=== PATIENT | female | born 1990 | race Caucasian/White ===

== ENCOUNTER 2019-01-04 12:14 | Emergency (ER) | payer OTHER, SELFPAY ==
[2019-01-04 12:18] VITALS: BP 131/87; PULSE 84; RESP 18; TEMP 36.3; O2SAT 100; BMI 30.9
--- NOTE | 2019-01-04 12:29 | ED_ITS ---
HPI - <NIRMAL Pedersen - Last Filed: 01/04/19 21:52> General Chief complaint: OB/Uterine Contractions Stated complaint: 8wks preg, says bright red bleeding last night Time Seen by Provider: 01/04/19 12:28 Source: patient Mode of arrival: ambulatory Limitations: no limitations History of Present Illness HPI Narrative: 28-year-old healthy female that is a nonsmoker here for complaint of vaginal bleeding. She reports that she is approximately 8 weeks . She is 1 she states that she has had some spotting since last night. She also states she passed a few clots. She states she had some cramping last night however no cramping today. She denies any urinary symptoms. No abdominal trauma. She believes her blood type is B negative. Positive p.o. intake. She denies any other concerns or complaints at this timeframe. MD Complaint: vaginal bleeding Date of Last Menstrual Period: 11/10/18 Patient : Yes Expected Date of Delivery: 08/16/19 Review of Systems <NIRMAL Pedersen - Last Filed: 01/04/19 21:52> Constitutional Denies chills, Denies fever(s), Denies lethargy and Denies weakness Eyes Denies change in vision, Denies eye discharge, Denies irritation and Denies loss of vision ENT Ears, Nose, Mouth, and Throat: Denies change in voice, Denies neck pain and Denies sore throat Cardiovascular Denies chest pain, Denies irregular heart rhythm, Denies lightheadedness, Denies palpitations, Denies dyspnea, Denies dyspnea on exertion and Denies orthopnea Respiratory Denies cough, Denies dyspnea, Denies dyspnea on exertion and Denies wheezing Gastrointestinal Gastrointestinal: Denies abdominal pain, Denies change in bowel habits, Denies diarrhea, Denies nausea and Denies vomiting Genitourinary Comments: Vaginal spotting 8 weeks Musculoskeletal Denies neck pain Integumentary/Breasts Denies pruritus, Denies erythema, Denies rash and Denies wounds Neurologic Denies confusion, Denies loss of vision and Denies weakness Psychiatric Denies anxiety, Denies confusion, Denies depression, Denies homicidal ideation and Denies suicidal ideation Endocrine Denies palpitations Hematologic/Lymphatic Denies easy bruising Allergic/Immunologic Denies wheezing PMFSH - <NIRMAL Pedersen - Last Filed: 01/04/19 21:52> Past Medical History Medical history: Reports no medical history Surgical history: Reports no surgical history Date of Last Menstrual Period: 11/10/18 Patient : Yes Expected Date of Delivery: 08/16/19 Exam <Ariel NIRMAL Ngo - Last Filed: 01/04/19 21:52> Initial Vital Signs Initial Vital Signs: Vital Signs Temperature 97.3 F L 01/04/19 12:18 Pulse Rate 84 01/04/19 12:18 Respiratory Rate 18 01/04/19 12:18 Blood Pressure 131/87 01/04/19 12:18 Pulse Oximetry 100 01/04/19 12:18 Const General: cooperative and well developed Nutritional Appearance: well nourished Orientation: alert, awake, oriented x3 and not confused HENMT Mouth: oral mucosae normal and mucous membranes abnormal Eyes Conjunctivae: conjunctivae normal Sclera: sclerae normal Pupils: PERRL EOM: EOM intact bilaterally Resp Effort & Inspection: normal respiratory effort, able to speak in complete sentences, no respiratory distress and no use of accessory muscles Auscultation: clear to auscultation bilaterally, no rales, no rhonchi and no wheezes Cardio Rate: regular rate Rhythm: regular rhythm Heart Sounds: no click, no gallops, no murmurs and no rubs GI Inspection: non-distended Palpation: soft, no hepatosplenomegaly, No guarding, No pulsatile mass and No tender Auscultation: normal bowel sounds General: No CVA tenderness Skin General: no rashes or lesions noted, No jaundice and No petechiae Neuro General: alert, oriented x3, gait normal and no focal motor deficits Speech: speech normal <Tamia Guo DO - Last Filed: 01/08/19 07:07> Initial Vital Signs Initial Vital Signs: Vital Signs Temperature 97.3 F L 01/04/19 12:18 Pulse Rate 84 01/04/19 12:18 Respiratory Rate 18 01/04/19 12:18 Blood Pressure 131/87 01/04/19 12:18 Pulse Oximetry 100 01/04/19 12:18 Course <NIRMAL Pedersen - Last Filed: 01/04/19 21:52> Orders Ordered: Discontinued Medications Rho Immune Globulin (Hyperrho S-D) 1,500 unit IM NOW ONE Stop: 01/04/19 14:47 Last Admin: 01/04/19 15:23 Dose: 1,500 unit Vital Signs - 8 hr 01/04/19 16:09 Pulse Rate 76 Respiratory Rate 16 Blood Pressure [Right Arm] 111/75 Pulse Oximetry 100 <Tamia Guo DO - Last Filed: 01/08/19 07:07> Orders Ordered: Discontinued Medications Rho Immune Globulin (Hyperrho S-D) 1,500 unit IM NOW ONE Stop: 01/04/19 14:47 Last Admin: 01/04/19 15:23 Dose: 1,500 unit Vital Signs - 8 hr 01/04/19 16:09 Pulse Rate 76 Respiratory Rate 16 Blood Pressure [Right Arm] 111/75 Pulse Oximetry 100 MDM - OB/Uterine Contractions <NIRMAL Pedersen - Last Filed: 01/04/19 21:52> Lab Data Result diagrams: 01/04/19 14:06 01/04/19 14:06 Lab Results 01/04/19 01/04/19 01/04/19 Range/Units 13:22 14:06 14:06 WBC 8.8 (4.5-11.0) X10^3/uL RBC 4.90 (4.0-5.2) X10^6/uL Hgb 14.6 (12.0-16.0) g/dL Hct 42.2 (36-46) % MCV 86.2 (80-100) fL MCH 29.9 (26-34) PG MCHC 34.7 (30-36) % RDW 13.0 (11.6-14.8) % Plt Count 208 (150-400) X10^3/uL Neut % (Auto) 74.7 (50-75) % Lymph % (Auto) 15.7 L (25-40) % [place] % (Auto) 7.9 (3-14) % Eos % (Auto) 0.8 L (2-4) % Baso % (Auto) 0.9 (0-2) % Neut # (Auto) 6600 (5108-3846) /uL Lymph # (Auto) 1400 (2656-7414) /uL [place] # (Auto) 700 (0-900) /uL Eos # (Auto) 100 (0-450) /uL Baso # (Auto) 100 (0-100) /uL Sodium 136 L (137-145) mmol/L Potassium 3.7 (3.4-5.1) mmol/L Chloride 104 (98-107) mmol/L Carbon Dioxide 21 L (22-32) mmol/L BUN 11 (7-17) mg/dL Creatinine 0.60 (0.52-1.04) mg/dL Estimated GFR > 60.0 (>60) mL/min BUN/Creatinine Ratio 18.3 (6-22) Glucose 84 (70-100) mg/dL Calcium 9.4 (8.4-10.2) mg/dL Total Bilirubin 0.3 (0.2-1.3) mg/dL AST 20 (14-36) IU/L ALT 27 (9-52) IU/L Alkaline Phosphatase 53 (38-126) U/L Total Protein 7.7 (6.3-8.2) g/dL Albumin 4.5 (3.5-5.0) g/dL Globulin 3.2 (1.7-4.1) g/dL Albumin/Globulin Ratio 1.4 (1.0-2.8) HCG, Quant 137848 mIU/mL Urine RBC None seen (0-5/HPF) Urine WBC 0-1/hpf (0-5/HPF) Ur Squamous Epith Cells 5-10 /hpf H Urine Bacteria Occasional (0-1) (None) Urine Mucus 1+ H (Negative) Ur Culture Indicated? Cult not indicated Blood Type 01/04/19 Range/Units 14:06 WBC (4.5-11.0) X10^3/uL RBC (4.0-5.2) X10^6/uL Hgb (12.0-16.0) g/dL Hct (36-46) % MCV (80-100) fL MCH (26-34) PG MCHC (30-36) % RDW (11.6-14.8) % Plt Count (150-400) X10^3/uL Neut % (Auto) (50-75) % Lymph % (Auto) (25-40) % [place] % (Auto) (3-14) % Eos % (Auto) (2-4) % Baso % (Auto) (0-2) % Neut # (Auto) (8757-8536) /uL Lymph # (Auto) (9653-7489) /uL [place] # (Auto) (0-900) /uL Eos # (Auto) (0-450) /uL Baso # (Auto) (0-100) /uL Sodium (137-145) mmol/L Potassium (3.4-5.1) mmol/L Chloride (98-107) mmol/L Carbon Dioxide (22-32) mmol/L BUN (7-17) mg/dL Creatinine (0.52-1.04) mg/dL Estimated GFR (>60) mL/min BUN/Creatinine Ratio (6-22) Glucose (70-100) mg/dL Calcium (8.4-10.2) mg/dL Total Bilirubin (0.2-1.3) mg/dL AST (14-36) IU/L ALT (9-52) IU/L Alkaline Phosphatase (38-126) U/L Total Protein (6.3-8.2) g/dL Albumin (3.5-5.0) g/dL Globulin (1.7-4.1) g/dL Albumin/Globulin Ratio (1.0-2.8) HCG, Quant mIU/mL Urine RBC (0-5/HPF) Urine WBC (0-5/HPF) Ur Squamous Epith Cells Urine Bacteria (None) Urine Mucus (Negative) Ur Culture Indicated? Blood Type B Negative Urine Dip Bedside Urine Glucose 250 mg/dl Bedside Urine Bilirubin - Negative Bedside Urine Ketone - Negative Urine Specific [place] 1.030 Bedside Urine Occult Blood +/- Bedside Urine pH 6.0 Bedside Urine Protein +/- 15 Bedside Urine Urobilinogen - Negative Bedside Urine Nitrite - Negative Bedside Urine Leukocytes - Negative Esterase Imaging Data ultrasound: Radiologist's impression: [address] [address] Ultrasound Report Signed Patient: Osiris Joya#: [id number] : 1990Acct:[id number] Age/Sex: 28 / FDate of Service: 01/04/19 Loc: ED Accession Number: [id number] Procedure: US OB <= 14 weeks fetus Ordering Provider: Ariel Ngo PROCEDURE: US OB <= 14 WEEKS FETUS INDICATIONS: Approximately 8 weeks with vaginal bleeding OUTSIDE/PRIOR DATING DATA: Last menstrual period (LMP): 11/10/18. LMP-based estimated date of delivery (ROBERTO): 08/17/19. First dating scan (date and location): This study, 01/04/19. Estimated date of delivery (ROBERTO) from first dating scan: 08/24/19, plus or -5 days. TECHNIQUE: Real-time scanning was performed of the fetus and maternal pelvic organs, with image documentation. Endovaginal scanning was also performed to better visualize the fetus and maternal ovaries. COMPARISON: None. FINDINGS: Embryo: Chamberlain-rump length of 9 mm correlates with a current gestational age of 6 weeks 6 days, plus or -5 days. cardiac activity at 145 beats per minute is noted. Measurement variability in dating: +/- 4 weeks by LMP, +/- 7 days by mean sac diameter (use before 6 weeks gestation if crown-rump length not able to be measured), +/- 5 days by crown-rump length (up to 8 weeks 6 days gestation), +/- 7 days by crown-rump length (up to 13 weeks 6 days gestation). Maternal organs: Ovaries appear normal considering gestational status. Limited images through the kidneys demonstrate no hydronephrosis. IMPRESSION: Single living intrauterine gestation with gestational age 6 weeks 6 days and delivery date projected to be centered on 08/24/19, plus or -5 days. Followup anatomic survey at 21 weeks gestation is recommended. Dictated by: Ash Cornejo M.D. on 01/04/2019 at 14:59 Approved by: Ash Cornejo M.D. on 01/04/2019 at 15:02 MDM Narrative Medical decision making narrative: ultrasound was obtained and shows viable intrauterine 6 weeks 6 days with heart rate of 145. Source of bleeding is not identified. Chem panel was obtained was unremarkable. CBC was obtained was also unremarkable. hCG quantitative was at 164,000. ABO Rh shows b negative. RhoGAM was given in the emergency room. Will treat as threatened . Follow up with OB in the next couple of days for re- evaluation. For any worsening symptoms return to the emergency room. <Tamia Guo, - Last Filed: 01/08/19 07:07> Lab Data Lab Results 01/04/19 01/04/19 01/04/19 Range/Units 13:22 14:06 14:06 WBC 8.8 (4.5-11.0) X10^3/uL RBC 4.90 (4.0-5.2) X10^6/uL Hgb 14.6 (12.0-16.0) g/dL Hct 42.2 (36-46) % MCV 86.2 (80-100) fL MCH 29.9 (26-34) PG MCHC 34.7 (30-36) % RDW 13.0 (11.6-14.8) % Plt Count 208 (150-400) X10^3/uL Neut % (Auto) 74.7 (50-75) % Lymph % (Auto) 15.7 L (25-40) % [place] % (Auto) 7.9 (3-14) % Eos % (Auto) 0.8 L (2-4) % Baso % (Auto) 0.9 (0-2) % Neut # (Auto) 6600 (7479-6244) /uL Lymph # (Auto) 1400 (3598-4331) /uL [place] # (Auto) 700 (0-900) /uL Eos # (Auto) 100 (0-450) /uL Baso # (Auto) 100 (0-100) /uL Sodium 136 L (137-145) mmol/L Potassium 3.7 (3.4-5.1) mmol/L Chloride 104 (98-107) mmol/L Carbon Dioxide 21 L (22-32) mmol/L BUN 11 (7-17) mg/dL Creatinine 0.60 (0.52-1.04) mg/dL Estimated GFR > 60.0 (>60) mL/min BUN/Creatinine Ratio 18.3 (6-22) Glucose 84 (70-100) mg/dL Calcium 9.4 (8.4-10.2) mg/dL Total Bilirubin 0.3 (0.2-1.3) mg/dL AST 20 (14-36) IU/L ALT 27 (9-52) IU/L Alkaline Phosphatase 53 (38-126) U/L Total Protein 7.7 (6.3-8.2) g/dL Albumin 4.5 (3.5-5.0) g/dL Globulin 3.2 (1.7-4.1) g/dL Albumin/Globulin Ratio 1.4 (1.0-2.8) HCG, Quant 468929 mIU/mL Urine RBC None seen (0-5/HPF) Urine WBC 0-1/hpf (0-5/HPF) Ur Squamous Epith Cells 5-10 /hpf H Urine Bacteria Occasional (0-1) (None) Urine Mucus 1+ H (Negative) Ur Culture Indicated? Cult not indicated Blood Type 01/04/19 Range/Units 14:06 WBC (4.5-11.0) X10^3/uL RBC (4.0-5.2) X10^6/uL Hgb (12.0-16.0) g/dL Hct (36-46) % MCV (80-100) fL MCH (26-34) PG MCHC (30-36) % RDW (11.6-14.8) % Plt Count (150-400) X10^3/uL Neut % (Auto) (50-75) % Lymph % (Auto) (25-40) % [place] % (Auto) (3-14) % Eos % (Auto) (2-4) % Baso % (Auto) (0-2) % Neut # (Auto) (2553-4506) /uL Lymph # (Auto) (2386-7882) /uL [place] # (Auto) (0-900) /uL Eos # (Auto) (0-450) /uL Baso # (Auto) (0-100) /uL Sodium (137-145) mmol/L Potassium (3.4-5.1) mmol/L Chloride (98-107) mmol/L Carbon Dioxide (22-32) mmol/L BUN (7-17) mg/dL Creatinine (0.52-1.04) mg/dL Estimated GFR (>60) mL/min BUN/Creatinine Ratio (6-22) Glucose (70-100) mg/dL Calcium (8.4-10.2) mg/dL Total Bilirubin (0.2-1.3) mg/dL AST (14-36) IU/L ALT (9-52) IU/L Alkaline Phosphatase (38-126) U/L Total Protein (6.3-8.2) g/dL Albumin (3.5-5.0) g/dL Globulin (1.7-4.1) g/dL Albumin/Globulin Ratio (1.0-2.8) HCG, Quant mIU/mL Urine RBC (0-5/HPF) Urine WBC (0-5/HPF) Ur Squamous Epith Cells Urine Bacteria (None) Urine Mucus (Negative) Ur Culture Indicated? Blood Type B Negative Urine Dip Bedside Urine Glucose 250 mg/dl Bedside Urine Bilirubin - Negative Bedside Urine Ketone - Negative Urine Specific [place] 1.030 Bedside Urine Occult Blood +/- Bedside Urine pH 6.0 Bedside Urine Protein +/- 15 Bedside Urine Urobilinogen - Negative Bedside Urine Nitrite - Negative Bedside Urine Leukocytes - Negative Esterase Discharge Plan Departure Patient Disposition: Home Clinical Impression: Bleeding in early Discharge Date/Time: 01/04/19 16:13 Interventions: ED Discharge Assessment Last Done: 01/04/19 16:11 Instructions: DI for Vaginal Bleeding During Activity Restrictions/Additional Instructions: Ultrasound was obtained and shows a 6 week 6-day-old intrauterine viable with good heart rate. Bleeding source is not seen. Follow up with OB in the next few days for re-evaluation. RhoGAM was given in the emergency room to prevent antibody formation to a possible Rh positive blood. No strenuous activity and pelvic rest. For any worsening symptoms return to the emergency room. Referrals: [facility] [Provider Group] <Tamia Guo DO - Last Filed: 01/08/19 07:07> Cosign ED Attending Cosignature Attestation: I was immediately available in the department for consultation. This documentation has been reviewed and I agree with assessment and plan. Supervised by Tamia Guo DO
--- NOTE | 2019-01-04 13:27 | DI.US.S_ITS ---
PROCEDURE: US OB <= 14 WEEKS FETUS INDICATIONS: Approximately 8 weeks with vaginal bleeding OUTSIDE/PRIOR DATING DATA: Last menstrual period (LMP): 11/10/18. LMP-based estimated date of delivery (ROBERTO): 08/17/19. First dating scan (date and location): This study, 01/04/19. Estimated date of delivery (ROBERTO) from first dating scan: 08/24/19, plus or -5 days. TECHNIQUE: Real-time scanning was performed of the fetus and maternal pelvic organs, with image documentation. Endovaginal scanning was also performed to better visualize the fetus and maternal ovaries. COMPARISON: None. FINDINGS: Embryo: [place]-rump length of 9 mm correlates with a current gestational age of 6 weeks 6 days, plus or -5 days. cardiac activity at 145 beats per minute is noted. Measurement variability in dating: +/- 4 weeks by LMP, +/- 7 days by mean sac diameter (use before 6 weeks gestation if crown-rump length not able to be measured), +/- 5 days by crown-rump length (up to 8 weeks 6 days gestation), +/- 7 days by crown-rump length (up to 13 weeks 6 days gestation). Maternal organs: Ovaries appear normal considering gestational status. Limited images through the kidneys demonstrate no hydronephrosis. IMPRESSION: Single living intrauterine gestation with gestational age 6 weeks 6 days and delivery date projected to be centered on 08/24/19, plus or -5 days. Followup anatomic survey at 21 weeks gestation is recommended. Dictated by: Ash Cornejo M.D. on 01/04/2019 at 14:59 Approved by: Ash Cornejo M.D. on 01/04/2019 at 15:02
[2019-01-04 13:45] LABS: RBC Urine None Seen (0-5/HPF)
[2019-01-04 13:55] LABS: Bacteria Urine Occasional (0-1); Culture Indicated Urine Cult Not Indicated; Mucus Urine 1+ (Negative); Squamous Epithelial Cell Urine 5-10 /HPF; WBC Urine 0-1/HPF (0-5/HPF)
[2019-01-04 14:14] LABS: Add Manual Diff / Slide Review NO; Basophils Absolute Auto 100 /uL (0-100); Basophils Percent Auto 0.9 % (0-2); Eosinophils Absolute Auto 100 /uL (0-450); Eosinophils Percent Auto 0.8 % (2-4); Hematocrit 42.2 % (36-46); Hemoglobin 14.6 g/dL (12.0-16.0); Lymphocytes Absolute Auto 1400 /uL (1100-4500); Lymphocytes Percent Auto 15.7 % (25-40); Mean Corpuscular HGB Conc 34.7 % (30-36); Mean Corpuscular Hemoglobin 29.9 PG (26-34); Mean Corpuscular Volume 86.2 fL (80-100); Monocytes Absolute Auto 700 /uL (0-900); Monocytes Percent Auto 7.9 % (3-14); Neutrophils Absolute Auto 6600 /uL (1500-7000); Neutrophils Percent Auto 74.7 % (50-75); Platelet Count 208 X10^3/uL (150-400); White Blood Cell Count 8.8 X10^3/uL (4.5-11.0)
[2019-01-04 14:26] LABS: Alanine Aminotransferase 27 IU/L (9-52); Albumin 4.5 g/dL (3.5-5.0); Albumin Globulin Ratio 1.4 (1.0-2.8); Alkaline Phosphatase 53 U/L (38-126); Aspartate Aminotransferase 20 IU/L (14-36); BUN Creatinine Ratio 18.3 (6-22); Bilirubin Total 0.3 mg/dL (0.2-1.3); Blood Urea Nitrogen 11 mg/dL (7-17); Calcium 9.4 mg/dL (8.4-10.2); Carbon Dioxide 21 mmol/L (22-32); Chloride 104 mmol/L (98-107); Estimated Glomerular Filt Rate > 60.0 mL/min (>60); Globulin 3.2 g/dL (1.7-4.1); Glucose 84 mg/dL (70-100); HEMOLYSIS < 15 (0-50); Potassium 3.7 mmol/L (3.4-5.1); Sodium 136 mmol/L (137-145); Total Protein 7.7 g/dL (6.3-8.2)
[2019-01-04 15:06] LABS: HCG Quantitative /Beta subunit 164290 mIU/mL
[2019-01-04] MEDS: RHO(D) IMMUNE GLOBULIN 1,500 UNIT SYRINGE 1500 UNIT IM (15:23)
[2019-01-04 16:09] VITALS: BP 111/75; PULSE 76; RESP 16; O2SAT 100
== END 2019-01-04 16:13 | disposition home or self-care (01) ==
PROVIDERS: Emergency Provider Nurse Practitioner Family
DX: O20.9 Hemorrhage in early pregnancy, unspecified (principal)
CPT/HCPCS: 76801; 80053; 81003; 81015; 84702; 85025; 86900; 86901; 99282; 99284; J2790

== ENCOUNTER → 2019-11-05 12:35 | Outpatient (CLI) | payer OTHER, SELFPAY | DX: Z23 Encounter for immunization (principal) | CPT/HCPCS: 90471; 90686 ==

== ENCOUNTER → 2020-08-22 10:31 | Outpatient (CLI) | payer OTHER, SELFPAY ==
--- NOTE | 2020-08-22 | DI.US.S_ITS ---
PROCEDURE: US OB >= 14 WEEKS FETUS INDICATIONS: ANATOMY SCAN OUTSIDE/PRIOR DATING DATA: Last menstrual period (LMP): 03/11/2020. LMP-based estimated date of delivery (ROBERTO): 12/16/2019. First dating scan (date and location): 06/09/2020. Estimated date of delivery (ROBERTO) from first dating scan: 12/16/2019. TECHNIQUE: Real-time scanning was performed of the fetus, with image documentation and biometric measurements. Endovaginal scanning: Not performed. COMPARISON: None. FINDINGS: General: A single living intrauterine gestation is present. Presentation: Vertex. Placenta: Placental position is anterior , without previa. Amniotic fluid index: 18.8 cm, normal range is 5-24 cm; largest pocket 5.6 cm. heart rate: 165 beats per minute. Maternal cervical canal: 3.8 cm long. Normal lower limit is 2.5 cm. biometrics: Biparietal diameter: 24 weeks 1 day Head circumference: 22 weeks 5 days Abdominal circumference: 23 weeks 3 days Femur length: 22 weeks 5 days Estimated gestational age from initial scan: 23 weeks 3 days. Composite gestational age from present scan: 23 weeks 2 days Estimated weight and percentile: 564 gm; 28% for gestation age Measurement variability for biometric dating: +/- 7 days from 14 weeks to 15 weeks 6 days gestation, +/- 10 days from 16 weeks to 21 weeks 6 days gestation, +/- 2 weeks from 22 weeks to 27 weeks 6 days gestation, +/- 3 weeks for 28 weeks gestation or later. weight reference: 4500 g or EFW >90/95% is considered macrosomia or large for gestational age. EFW <10% is small for gestational age. EFW 5% or less is considered intra-uterine growth restriction. Anatomic survey: Neuro: Ventricles are non-dilated at less than 10 mm. Cisterna magna is normal at 3-11 mm. Cerebellum is normal in size and morphology. Nuchal skin fold: Normal at less than 6 mm between 14-21 weeks gestational age. Face: Nose and lips are normal. facial profile not well seen. Spine: No evidence for spina bifida. Heart: 4-chambered heart is present; the ventricular outflow tracts are not well seen. Diaphragm: Diaphragm is intact. Stomach: Left-sided stomach is present. Kidneys: No hydronephrosis. Normal is less than 5 mm in 2nd trimester, less than 7 mm in 3rd trimester. Cord: 3-vessel cord has orthotopic insertion. Bladder: Normal in size. Extremities: All 4 extremities identified. IMPRESSION: 1. A single living intrauterine gestation with appropriate interval growth. 2. The facial profile and cardiac outflow tracts are not well seen; otherwise normal anatomic survey. Follow-up imaging suggested Dictated by: Richard Lopes M.D. on 08/22/2020 at 15:12 Approved by: Richard Lopes M.D. on 08/22/2020 at 16:53
== END ==
PROVIDERS: Referring Provider Nurse Practitioner Obstetrics & Gynecology; Visit Provider Nurse Practitioner Obstetrics & Gynecology
DX: Z36.89 Encounter for other specified antenatal screening (principal); Z3A.23 23 weeks gestation of pregnancy
CPT/HCPCS: 76811

== ENCOUNTER → 2020-08-31 12:50 | Outpatient (CLI) | payer OTHER, SELFPAY ==
--- NOTE | 2020-08-31 | DI.US.S_ITS ---
PROCEDURE: US OB FOLLOW UP INDICATIONS: FOLLOW UP ANATOMY SCAN FACE AND CARDIAC OUTF OUTSIDE/PRIOR DATING DATA: Last menstrual period (LMP): 03/11/2020. LMP-based estimated date of delivery (ROBERTO): 12/16/2019 . First dating scan (date and location): 06/09/2020 . Estimated date of delivery (ROBERTO) from first dating scan: 12/16/2020 . TECHNIQUE: Real-time scanning was performed of the fetus, with image documentation and biometric measurements. Endovaginal scanning: No COMPARISON: [facility], OB >= 14 WEEKS FETUS, 08/22/2020, 10:51. FINDINGS: General: A single living intrauterine gestation is present. Presentation: Vertex. Placenta: Placental position is anterior , without previa. Amniotic fluid index: 24.2 cm, normal range is 5-24 cm. heart rate: 162 beats per minute. Maternal cervical canal: 3.6 cm long. Normal lower limit is 2.5 cm. Estimated gestational age from initial scan: 24 weeks 5 days IMPRESSION: 1. Single living IUP redemonstrated and today's exam demonstrating normal appearance of the facial profile and cardiac outflow tracts. Dictated by: Ankush FARIA Interpreted: Ash Cornejo MD on 08/31/2020 at 14:01 Approved by: Ash Cornejo M.D. on 08/31/2020 at 14:22
== END ==
PROVIDERS: Referring Provider Nurse Practitioner Obstetrics & Gynecology; Visit Provider Nurse Practitioner Obstetrics & Gynecology
DX: Z36.2 Encounter for other antenatal screening follow-up (principal); Z3A.24 24 weeks gestation of pregnancy
CPT/HCPCS: 76816

== ENCOUNTER → 2020-09-05 11:58 | Outpatient (CLI) | payer OTHER, SELFPAY ==
[2020-09-05 12:59] LABS: Hematocrit 36.1 % (36-46); Hemoglobin 12.2 g/dL (12.0-16.0); Mean Corpuscular HGB Conc 33.7 % (30-36); Mean Corpuscular Hemoglobin 30.1 PG (26-34); Mean Corpuscular Volume 89.3 fL (80-100); Platelet Count 154 X10^3/uL (150-400); Red Blood Cell Count 4.04 X10^6/uL (4.0-5.2); Red Cell Distribution Width 13.1 % (11.6-14.8); White Blood Cell Count 8.8 X10^3/uL (4.5-11.0)
== END ==
PROVIDERS: Referring Provider Nurse Practitioner Obstetrics & Gynecology; Visit Provider Nurse Practitioner Obstetrics & Gynecology
DX: Z13.1 Encounter for screening for diabetes mellitus (principal); Z67.21 Type B blood, Rh negative; Z3A.24 24 weeks gestation of pregnancy
CPT/HCPCS: 36415; 85027; 86850

== ENCOUNTER → 2020-11-21 10:53 | Outpatient (CLI) | payer OTHER, SELFPAY ==
--- NOTE | 2020-11-21 | DI.US.S_ITS ---
PROCEDURE: US OB LIMITED INDICATIONS: EFW OUTSIDE/PRIOR DATING DATA: Last menstrual period (LMP): 03/11/20 . LMP-based estimated date of delivery (ROBERTO): 12/16/20. First dating scan (date and location): 06/09/20 . Estimated date of delivery (ROBERTO) from first dating scan: 12/16/20 . TECHNIQUE: Real-time scanning was performed of the fetus, with image documentation and biometric measurements. Biophysical profile was also obtained. Endovaginal scanning: Not performed COMPARISON: [facility], OB FOLLOW UP, 08/31/2020, 13:04. [facility], OB >= 14 WEEKS FETUS, 08/22/2020, 10:51. FINDINGS: General: A single living intrauterine gestation is present. Presentation: Vertex. Placenta: Placental position is right fundal , without previa. Amniotic fluid index: 15.4 cm, normal range is 5-24 cm. heart rate: 153 beats per minute. biometrics: Biparietal diameter: 8.9 cm, 35 weeks 6 days Head circumference: 32.8 cm, 37 weeks 1 day Abdominal circumference: 31.7 cm, 35 weeks 5 days Femur length: 7.1 cm, 36 weeks 4 days Estimated gestational age from initial scan: 36 weeks 3 days Composite gestational age from present scan: 36 weeks 2 days Estimated weight and percentile: 2841 g, 43rd percentile Measurement variability for biometric dating: +/- 7 days from 14 weeks to 15 weeks 6 days gestation, +/- 10 days from 16 weeks to 21 weeks 6 days gestation, +/- 2 weeks from 22 weeks to 27 weeks 6 days gestation, +/- 3 weeks for 28 weeks gestation or later. weight reference: 4500 g or EFW >90/95% is considered macrosomia or large for gestational age. EFW <10% is small for gestational age. EFW 5% or less is considered intra-uterine growth restriction. IMPRESSION: Single living intrauterine fetus in vertex presentation. Expected interval growth as above. Estimated weight at the 43rd percentile Dictated by: Nathan Paige M.D. on 11/21/2020 at 16:18 Approved by: Nathan Paige M.D. on 11/21/2020 at 16:21
== END ==
PROVIDERS: Referring Provider Nurse Practitioner Obstetrics & Gynecology; Visit Provider Nurse Practitioner Obstetrics & Gynecology
DX: Z36.89 Encounter for other specified antenatal screening (principal); Z3A.36 36 weeks gestation of pregnancy
CPT/HCPCS: 76815

== ENCOUNTER → 2020-11-27 20:36 | Outpatient (ROUT) | payer OTHER, SELFPAY | PROVIDERS: Visit Provider Nurse Practitioner Obstetrics & Gynecology | DX: Z34.90 Encounter for supervision of normal pregnancy, unspecified, unspecified trimester (principal); Z36.85 Encounter for antenatal screening for Streptococcus B; Z3A.36 36 weeks gestation of pregnancy | CPT/HCPCS: 87081 ==

== ENCOUNTER 2020-12-18 17:01 | Inpatient (IN) | payer OTHER, SELFPAY ==
--- NOTE | 2020-12-18 17:07 | PM.OBHP.1 ---
OB HPI Date/Time Date of admission: 12/18/20 Date Patient Seen: 12/18/20 Time Patient Seen: 17:00 History of Present Condition Chief complaint: : 2 Para: 1 Estimated Date of Delivery: 12/16/20 Estimated Gestational Age (weeks): 40.2 Narrative: Osiris Joya is a 30 year old female @ [id number] by LMP and 12wks US who presents for evaluation of labor. Has been diana regularly since 0600 w/ contractions slowly increasing in intensity. History of Present care: good care and initiated at week # (12) Dating criteria: LMP confirmed by 1st trimester US Ultrasounds: normal mid trimester US Obstetrical complications: gestational diabetes (GDMA1) Preadmission Labs Blood type: B (-) negative -: Antibody screen: negative, GBS status: negative, HBsAG: negative, HIV: negative and RPR/VDLR: negative -: Chlamydia screen: not detected and Gonorrhea screen: not detected -: Rubella: immune and Varicella: immune HCT: 36.1 HCAB: negative Narrative: Elevated early 1 hr gtt, declined 3hr gtt, elected QID Bgs. GDMA1 diagnosed based on fasting BGs consistently >90. Remained well controlled, <95 without medication. Prior (ies) History: 08/20/2019- NSVB @ 39wks, 8#15oz female, epidural, 2nd degree lac, no complications Evaluation Evaluation Baseline heart rate: 145 Variability: Moderate (11-25) monitor accelerations: Present monitor decelerations: Variable Contraction Frequency (minutes): 2 Uterine Contraction Intensity: Strong/Firm Category of Tracing: Reactive Status: Category ll Cervical dilation (cm): 4 Cervical effacement (%): 90 station: -2 Comments: Small variable w/ SROM (@1741), followed by 10 minutes without decelerations PFSH Family History (Updated 12/18/20 @ 17:24 by Tabitha Anderson CNM) Father Hypertension Diabetes mellitus Social History (Updated 12/18/20 @ 17:25 by Tabitha Anderson CNM) marital status: number of children: 1 household members: spouse and children lives independently: Yes Smoking Status: Never smoker Meds Home Medications and Allergies Allergies Allergy/AdvReac Type Severity Reaction Status Date / Time No Known Drug Allergies Allergy Verified 12/18/20 17:10 Review of Systems Review of Systems ROS: Yes All systems reviewed with the patient and are negative except as otherwise documented Exam Vital Signs (past 8 hours): BP 125/75, HR108, T36.3C Temporal Chest Chest: normal inspection of the chest Resp Effort & Inspection: normal respiratory effort Auscultation: clear to auscultation bilaterally Cardio Rate: regular rate Rhythm: regular rhythm Heart Sounds: S1 normal and S2 normal Presentation: vertex Assessment and Plan Assessment and Plan Assessment and Plan narrative: A: Term primipara @ 40.2, approaching active labor, GDMA1, obesity, Cat I FHR P: Admit, routine orders w/ SL IV, CBC & T&S. Labor support, PRN. May switch to IA. Reassess in 4 hours or sooner, PRN.
[2020-12-18 17:47] VITALS: BP 125/75
[2020-12-18 18:21] LABS: Add Manual Diff / Slide Review NO; Basophils Absolute Auto 100 /uL (0-100); Basophils Percent Auto 0.6 % (0-2); Eosinophils Absolute Auto 100 /uL (0-450); Eosinophils Percent Auto 0.4 % (2-4); Hematocrit 38.9 % (36-46); Hemoglobin 12.6 g/dL (12.0-16.0); Lymphocytes Absolute Auto 1300 /uL (1100-4500); Lymphocytes Percent Auto 8.6 % (25-40); Mean Corpuscular HGB Conc 32.4 % (30-36); Mean Corpuscular Hemoglobin 26.9 PG (26-34); Monocytes Absolute Auto 1000 /uL (0-900); Monocytes Percent Auto 6.5 % (3-14); Neutrophils Absolute Auto 12300 /uL (1500-7000); Neutrophils Percent Auto 83.9 % (50-75); Platelet Count 154 X10^3/uL (150-400); Red Blood Cell Count 4.69 X10^6/uL (4.0-5.2); Red Cell Distribution Width 14.4 % (11.6-14.8); White Blood Cell Count 14.7 X10^3/uL (4.5-11.0)
[2020-12-18 18:34] LABS: COVID19 -Nasal RAPID Negative (Negative)
[2020-12-18] MEDS: LACTATED RINGERS 1,000 ML 100 ML IV (18:41)
--- NOTE | 2020-12-18 19:34 | PM.OBPNLAB ---
Date/Time Date Patient Seen: 12/18/20 Time Patient Seen: 19:30 Pain Control Pain control: epidural Comments: SROM, clear fluid occurred at 1741 with rapidly strengthening contractions immediately after. Pt was unable to tolerate Q1-1.5 minute contractions while laboring in tub and requested exam and epidural. Was checked and found to be 6/90/0 at that time, assisted out of tub and anesthesia called. Pelvic Exam Dilation (cm): 9 Effacement (%): 100 station: 0 Amniotic membrane status: Leaking Contractions Contractions on admission: regular Monitor mode: External Pitocin rate (mU/min): 0 Contraction frequency (min): 2 Contraction duration (min): 1 Contraction pattern: Regular Contraction intensity: Strong/Firm Status status: Category l Heart Rate Baseline: 145 Monitor Accelerations: Present Monitor Decelerations: Absent Monitor Variability: Moderate Assessment and Plan Assessment: active labor Plan: continuous present management Comments: Anticipate NSVB soon. Reassess in 2 hours.
--- NOTE | 2020-12-18 20:41 | PM.OBPRVD ---
Events: Meconium Stained Fluid Labor & Delivery Delivery date: 12/18/20 Intrapartal events: None Cervical ripening method: none Induction method: none Delivery monitor: external FHT and external uterine Route of delivery: L&D Laceration Description: Perineal - 1st Degree Delivery repair: chromic (3.0) Estimated blood loss (mL): 300 Anesthesia Type: Epidural Narrative: Patient was reassessed after appearance of early decelerations in FHR monitor and was found to be C/C/+2. Patient pushed well with minimal coaching. NSVB of a viable baby girl in JONNA position w/ NO nuchal cord and easy delivery of the shoulders. was placed on maternal abdomen for drying, stimulation and skin to skin. Patient declined active management of the third stage of labor. After cessation of pulsation, the cord was double clamped by CNM and cut by FOB. Hospital cord blood sample was collected. Spontaneous, Schultze delivery of an apparently intact placenta, membranes and 3VC. Fundus immediately firm and bleeding minimal. Inspection revealed a small 1st degree perineal laceration which was repaired w/ 3.0 Chromic in the usual fashion, under adequate epidural anesthesia. QBL 300mL. Both mother and baby stable and skin to skin as I left the room. [place] Baby 1: Infant gender: Female Presentation: vertex Position: Right Occiput Anterior Placenta delivery description: Spontaneous Cord Vessel Description: 3 Vessels score (1 min): 9 score (5 min): 9 Plan for aftercare: Routine PP orders. Anticipate d/c to home in 18-24 hours.
[2020-12-18] MEDS: KETOROLAC 30 MG/ML VIAL IV (21:39)
[2020-12-19] MEDS: IBUPROFEN 600 MG TABLET PO ×2 (05:17→11:35)
[2020-12-19] MEDS: PRENATAL VIT,CALC/IRON/FOLIC 1 TABLET 1 TAB PO (11:35)
[2020-12-19] MEDS: DOCUSATE 100 MG CAPSULE PO (11:35)
--- NOTE | 2020-12-19 11:55 | PM.OBDS.1 ---
Discharge Providers Provider Date of admission: 12/18/20 17:01 Discharge Date: 12/19/20 Consults: 12/19/20 20:38 Consult to Wildlife Veterinarian Routine Comment: Discharge provider: Tabitha Anderson CNM Summary Discharge Diagnosis (1) First degree perineal laceration during delivery: Status: Acute Problem Details: Patient laying down in bed, resting. Voiding, ambulating and independently. Breastfed her toddler throughout so her milk is already in which has helped w/ 's hypoglycemia overnight. Lochia is light, no clots. Tolerating general diet. Pain well controlled w/ PO medications. Eager for discharge to home, hoping her 's BGs will remain stable for discharge throughout the day. Supportive is present. Time Spent with Patient Time attestation: Total time spent providing and/or coordinating discharge services: Objective Labs Result Diagrams: 12/18/20 17:30 Labs: Laboratory Results - last 24 hr 12/18/20 12/18/20 12/18/20 17:30 17:30 17:30 WBC 14.7 H RBC 4.69 Hgb 12.6 Hct 38.9 MCV 83.0 MCH 26.9 MCHC 32.4 RDW 14.4 Plt Count 154 Neut % (Auto) 83.9 H Lymph % (Auto) 8.6 L [place] % (Auto) 6.5 Eos % (Auto) 0.4 L Baso % (Auto) 0.6 Neut # (Auto) 66445 H Lymph # (Auto) 1300 [place] # (Auto) 1000 H Eos # (Auto) 100 Baso # (Auto) 100 SARS-CoV-2 (PCR) Negative Blood Type B Negative Antibody Screen Negative Maternal Bleed 12/19/20 05:38 WBC RBC Hgb Hct MCV MCH MCHC RDW Plt Count Neut % (Auto) Lymph % (Auto) [place] % (Auto) Eos % (Auto) Baso % (Auto) Neut # (Auto) Lymph # (Auto) [place] # (Auto) Eos # (Auto) Baso # (Auto) SARS-CoV-2 (PCR) Blood Type Antibody Screen Maternal Bleed Negative Exam Vital Signs (past 8 hours): BP 101/59, [id number], RR18/min, T36.4C Temporal Other: Fundus firm, midline @ u-1. Lochia light rubra. Perineum well approximated, no edema. Discharge Plan Discharge Plan Patient Disposition: Home Provider Discharge Comment: Rhogam prior to discharge Discharge orders & Medications Prescriptions: New acetaminophen 325 mg Tablet 650 mg PO Q6HR PRN (Reason: Pain, Mild (1-3)) 14 Days Qty: 60 RF: 0 ibuprofen 600 mg Tablet 600 mg PO Q6HR PRN (Reason: Pain, Mild (1-3)) 14 Days Qty: 60 RF: 0 Follow up/Referrals: Tabitha Anderson CNM [[facility] [employer] [facility] [employer]] - (01/01/21 @ 2:30pm by Telehealth 01/29/21 @ 4pm in office) Diet/Activity/Treatments Diet: Regular Activity: pelvic rest x 6 weeks Skin/Wound/Dressing Care Report to your healthcare provider any signs of infection, such as:: chills, fever, increased pain, unusual drainage and unusual redness Visit Report/Discharge Packet Instructions: DI for Depression
[2020-12-19] MEDS: RHO(D) IMMUNE GLOBULIN 1,500 UNIT SYRINGE 1500 UNIT IM (13:59)
[2020-12-19 20:55] VITALS: BP 125/75; PULSE 86; RESP 17; TEMP 36.6
== END 2020-12-19 21:00 | disposition home or self-care (01) | DRG 807 ==
PROVIDERS: Admitting Provider Nurse Practitioner Obstetrics & Gynecology; Referring Provider Nurse Practitioner Obstetrics & Gynecology; Visit Provider Nurse Practitioner Obstetrics & Gynecology
DX: O24.420 Gestational diabetes mellitus in childbirth, diet controlled (principal); Z37.0 Single live birth; Z3A.40 40 weeks gestation of pregnancy; O70.0 First degree perineal laceration during delivery; O77.0 Labor and delivery complicated by meconium in amniotic fluid; O42.02 Full-term premature rupture of membranes, onset of labor within 24 hours of rupture; Z20.822 Contact with and (suspected) exposure to COVID-19
CPT/HCPCS: 01967; 36415; 59050; 85025; 85461; 86850; 86900; 86901; 87635; C9803; G0379; J1885; J2790